=== PATIENT | male | born 1955 | race Caucasian/White ===

== ENCOUNTER 2016-03-27 06:05 | Emergency (ER) | payer BC ==
[2016-03-27 06:20] VITALS: TEMP 98.3; BMI 21.9
[2016-03-27] MEDS ORDERED: KETOROLAC TROMETHAMINE 60 MG/2 ML SDV IM ONE (07:08)
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
[2016-03-27 08:03] VITALS: BP 106/56; PULSE 75
== END 2016-03-27 08:00 | disposition home or self-care (01) ==
LOC: ED 06:05
DX: M54.9 Dorsalgia, unspecified (principal); G89.29 Other chronic pain
CPT/HCPCS: 96372; 99283; J1885